=== PATIENT | female | born 1970 | race Caucasian/White ===

== ENCOUNTER 2024-08-18 17:59 | Observation (INO) | payer BC ==
--- OUTSIDE RECORDS SUMMARY | 2024-08-18 18:02 | XMS REPORT | Continuity of Care Document ---
Author Name Unknown Address [address] [facility]. 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 Attending Clinician U SOLIS Sanchez Attending Clinician Unavailable BLU SALAZAR Attending Clinician Unavailable WENDY LENNON Attending Clinician Chicho MANCIA MD Attending Clinician Unavailab gina MUJICA Attending Clinician Unavailable CHUCHO PATEL Attending Clinician Unavailable Ej Albert Attending Clinician Berry Torrez Attending Clinician Chicho marques Lab, Adc Fam Pob I Attending Clinician Noy Anderson Attending Clinician NOY ALFORD Attending Clinician Unavailable Mable King Admitting Clinician Unavailable ULISSES BUENO Admitting Clinician Unavailable Physician, No Primary or Family Admitting Clinic ghazal Unavailable Payers Payer Name Policy Type Policy Number Effective Date Expirati on Date Source [facility] [id number] 2021 00:00:00 [facility] [id number] 2022 00:00:00 Problems Condition Name Condition Details Condition Category Status Onset Date Resolution Date Last Treatment Date Treating Clinician Comments Source No known active problems No known active problems Disease Tangela Briscoe - Externa l Allergies, Adverse Reactions, Alerts Allergy Name Allergy Type Status Severity Reaction(s) Onset Date Inactive Date Treating Clinician Comments Source No Known Allergie s DA Active U 05-20 00:00: 00 [facility] No Known Allergie s DA Active U 05-20 00:00: 00 [facility] No Known Allergie s DA Active U 05-07 00:00: 00 [facility] NO KNOWN ALLERGIE S Drug Class Active [facility] Social History Social Habit Start Date Stop Date Quantity Comments Source Gender identity Marie Briscoe - External Sexual orientation U [facility] History of Social function 2022-05-10 00:00:00 2022-05-10 00:00:00 Tangela Black External Exposure to SARS-CoV-2 (event) 2019-12-18 00:00:00 2020-01-17 13:51:00 Not sure [facility] Sex Assigned At 1970 00:00:00 1970 00:00:00 Tangela Briscoe - External Smoking Status Start Date Stop Date Source Tobacco smoking consumption unknown [facility] Never smoked tobacco Tangela Briscoe - External Medications Ordered Medication Name Filled Medication Name Start Date Stop Date Current Medication? Ordering Clinician Indication Dosage Frequency Signature (SIG) Comments Components Source Omeprazole 40 MG oral Delayed Release Capsule 2022-04 15:02: 34 Yes Tangela zuñiga Semaglutide -Delmer ght Management 0.5 MG/0.5ML Subcutaneou s Solution Auto-inject or 2022-04 00:00: 00 Yes [id number] 104 .5mg Inject 0.5 mg into the skin once a week. Tangela zuñiga Nitrofurant oin Monohyd Macro 100 MG oral Capsule 10-18 00:00: 00 10-24 04:59 :00 No [id number] 100mg Take 1 capsule (100 mg total) by mouth 2 times daily for 5 days Take 1 tablet by mouth twice daily for 5 days. Tangela zuñiga Fluoxetine HCl 10 MG oral Tablet 07-01 00:00: 00 Yes [id number] TAKE ONE (1) TABLET(S) BY MOUTH DAILY. Tangela zuñiga Bupropion HCL XL 150 MG OR TB24 07-01 00:00: 00 Yes [id number] TAKE ONE (1) TABLET(S) BY MOUTH DAILY. Tangela zuñiga Estradiol 2 MG oral Tablet 07-01 00:00: 00 Yes [id number] TAKE ONE (1) TABLET(S) BY MOUTH ONCE A DAY. Tangela zuñiga Dulaglutide (Trulicity) 1.5 MG/0.5ML subcutaneou s Solution Pen-injecto r 06-16 00:00: 00 Yes [id number] 1.5mg Inject 1.5 mg into the skin once a week Tangela zuñiga Diethylprop ion HCl CR 75 MG oral TABLET SR 24 HR 06-16 00:00: 00 Yes [id number] 1{tbl} Take 1 tablet by mouth every morning Tangela zuñiga Albuterol HFA 108 (90 Base) MCG/ACT IN AERS 05-19 00:00: 00 Yes [id number] 2{puff} Q.25D Inhale 2 puffs into the lungs every 6 hours as needed for wheezing Tnagela zuñiga Guaifenesin (Mucinex) 600 MG oral Tablet 12 Hour Sustained Release 05-19 00:00: 00 Yes [id number] 1200mg Take 2 tablets (1,200 mg total) by mouth 2 times daily Tangela zuñiga Benzonatate (Tessalon Perles) 100 MG oral Capsule 05-19 00:00: 00 Yes [id number] 100mg [id number] 3D Take 1 capsule (100 mg total) by mouth 3 times daily as needed for cough Tangela zuñiga Loratadine (Claritin) 10 MG oral tablet 05-19 00:00: 00 Yes [id number] 10mg Take 1 tablet (10 mg total) by mouth daily Tangela zuñiga FLUTICASONE PROPIONATE, NASAL, (Flonase) 50 MCG/ACT nasal Suspension 05-19 00:00: 00 06-19 05:59 :00 No [id number] 50ug Use 1 spray (50 mcg total) in each nostril daily Tangela zuñiga Diethylprop ion HCl CR 75 MG oral TABLET SR 24 HR 18 00:00: 00 Yes [id number] 1{tbl} Take 1 tablet by mouth every morning Tangela zuñiga Trulicity 1.5 MG/0.5ML subcutaneou s Solution Pen-injecto r 04-23 00:00: 00 Yes [id number] 1.5mg Inject 1.5 mg into the skin once a week Tangela zuñiga Diethylprop ion HCl CR 75 MG oral TABLET SR 24 HR 04-23 00:00: 00 Yes [id number] 1{tbl} Take 1 tablet by mouth every morning Tangela zuñiga Meloxicam 15 MG oral Tablet 04-22 20:24: 39 04-22 00:00 :00 No 15mg Take 15 mg by mouth daily Tangela zuñiga Estradiol 2 MG oral Tablet 2021-04 00:00: 00 Yes [id number] 2mg Take 1 tablet (2 mg total) by mouth daily Tangela zuñiga Bupropion HCL XL 150 MG OR TB24 2021-04 00:00: 00 Yes [id number] 150mg Take 1 tablet (150 mg total) by mouth daily Tangela zuñiga Fluoxetine HCl 10 MG oral Tablet 2021-04 00:00: 00 Yes [id number] 10mg Take 1 tablet (10 mg total) by mouth daily Tangela zuñiga Celecoxib 200 MG oral Capsule 2021-04 00:00: 00 03-10 00:00 :00 No [id number] TAKE ONE (1) CAPSULE(S) BY MOUTH TWICE A DAY. Tangela zuñiga Dulaglutide (Trulicity) 0.75 MG/0.5ML subcutaneou s Solution Pen-injecto r 2021-04 00:00: 00 04-23 00:00 :00 No [id number] .75mg Inject 0.75 mg into the skin once a week Tangela zuñiga Omeprazole 40 MG oral Delayed Release Capsule 2021-04 11:54: 22 03-13 00:00 :00 No omeprazole 40 mg capsule,de layed release Tangela zuñiga Estradiol 2 MG oral Tablet 2021-04 10:59: 03 Yes 2mg Take 2 mg by mouth daily Tangela zuñiga Meloxicam 15 MG oral Tablet 2021-04 10:59: 03 Yes 15mg Take 15 mg by mouth daily Tangela zuñiga Pantoprazol e Sodium 40 MG oral Tablet Delayed Response 2021-04 00:00: 00 Yes [id number] 40mg Take 1 tablet (40 mg total) by mouth daily Tangela zuñiga Fluoxetine HCl 10 MG oral Tablet 2021-04 00:00: 00 Yes [id number] 10mg Take 1 tablet (10 mg total) by mouth daily Tangela zuñiga OZEMPIC (0.25 or 0.5 mg/dose) 2 mg/1.5 mL SQ Solution Pen-Injecto r 2021-04 00:00: 00 Yes [id number] .25mg Inject 0.25 mg into the skin once a week Tangela zuñiga Bupropion HCL XL 150 MG OR TB24 2021-04 00:00: 00 Yes [id number] 150mg Take 1 tablet (150 mg total) by mouth daily Tangela zuñiga Celecoxib (CeleBREX) 200 MG oral Capsule 2021-04 00:00: 00 Yes [id number] 200mg Take 1 capsule (200 mg total) by mouth 2 times daily Tangela zuñiga Estradiol 2 MG oral Tablet 2021-04 11:15: 12 Yes 2mg Take 2 mg by mouth daily Tangela zuñiga Meloxicam 15 MG oral Tablet 2021-04 11:15: 12 Yes 15mg Take 15 mg by mouth daily Tangela zuñiga methylPREDN ISolone 4 MG oral Tablet Therapy Pack 2021-04 00:00: 00 Yes 1{renate} Take 1 renate by mouth See Admin Instructio ns Use as directed Tangela zuñiga Pseudoeph-B romphen-DM (Bromfed DM) 30-2-10 MG/5ML oral Syrup 2021-04 00:00: 00 Yes 10mL Q.25D Take 10 mL by mouth 4 times daily as needed Tangela zuñiga Amoxicillin -Pot Clavulanate 875-125 MG oral Tablet 2021-04 00:00: 00 02-21 05:59 :00 No 1{tbl} Take 1 tablet by mouth 2 times daily for 7 days Tangela zuñiga Phentermine -Topiramate (Qsymia) 15-92 MG oral Capsule 24 Hour Sustained Release 2021-04 0-19 00:00: 00 02-13 00:00 :00 No [id number] 1{tbl} Take 1 tablet by mouth daily Tangela zuñiga OZEMPIC (0.25 or 0.5 mg/dose) 2 mg/1.5 mL SQ Solution Pen-Injecto r 2021-04 0-14 00:00: 00 02-13 00:00 :00 No [id number] .5mg Inject 0.5 mg into the skin once a week Tangela zuñiga Metformin HCl ER 500 MG oral TABLET SR 24 HR 9- 00:00: 00 04-23 00:00 :00 No [id number] TAKE 1 TABLET BY MOUTH AFTER BREAKFAST AND AFTER EVENING MEAL Tangela zuñiga Bupropion HCL SR 200 MG OR TB12 10-12 00:00: 00 Yes [id number] 200mg Take 1 tablet (200 mg total) by mouth 2 times daily Tangela zuñiga Vital Signs Vital Name Observation Time Observation Value Comments S ourfarzaneh Systolic blood pressure 2023-03-10 20:56:00 118 mm[Hg] Tangela Leslie ld - External Diastolic blood pressure 2023-03-10 20:56:00 54 mm[Hg] Tangela jocelyno ld - External Heart rate 2023-03-10 20:56:00 80 /min Tyrone y Sekanchan - External Body temperature 2023-03-10 20:56:00 36.56 Katja Tangela jocelyncorin - External Respiratory rate 2023-03-10 20:56:00 18 /min Tangela kanchan - External Body height 2023-03-10 20:56:00 167.6 cm Marie susanna Mcduffieybcorin - External Body weight 2023-03-10 20:56:00 120.714 kg Marie mullins Seybold - External BMI 2023-03-10 20:56:00 42.95 kg/m2 Marie mullins Seybold - External Oxygen saturation in Arterial blood by Pulse oximetry 2023-03-10 20:56:00 99 /min Tangela Leslie ld - External Systolic blood pressure 2022-04-23 15:58:00 124 mm[Hg] Tangela savanna ld - External Diastolic blood pressure 2022-04-23 15:58:00 74 mm[Hg] Tangela Leslie ld - External Heart rate 2022-04-23 15:58:00 96 /min Tyrone alfreda Mcduffiejocelynold - External Body temperature 2022-04-23 15:58:00 36.5 Katja Tangela ybold - External Respiratory rate 2022-04-23 15:58:00 16 /min Tangela jocelynold - External Body height 2022-04-23 15:58:00 167.6 cm Marie ey Seybold - External Body weight 2022-04-23 15:58:00 115.214 kg Marie ey Seybold - External BMI 2022-04-23 15:58:00 41.00 kg/m2 Marie ey Seybold - External Systolic blood pressure 2022-03-13 16:50:00 112 mm[Hg] Tangela Seybo ld - External Diastolic blood pressure 2022-03-13 16:50:00 74 mm[Hg] Tangela Seybo ld - External Heart rate 2022-03-13 16:50:00 97 /min Kelse y Seybold - External Body temperature 2022-03-13 16:50:00 36.17 Katja Tangela Seybold - External Respiratory rate 2022-03-13 16:50:00 14 /min Tangela Seybold - External Body height 2022-03-13 16:50:00 167.6 cm Marie ey Seybold - External Body weight 2022-03-13 16:50:00 112.946 kg Marie ey Seybold - External BMI 2022-03-13 16:50:00 40.19 kg/m2 Marie ey Seybold - External Procedures Procedure Date / Time Performed Performing Clinician Source XR CHEST 2 VW 2023-01-30 20:42:00 [facility] 2023-01-30 20:10:22 Doctor Unassigned[facility] NO SHOW OR MISSED APPOINTMENT POLICY ACKNOWLEDGEMENT 2023-01-30 20:10:01 Doctor Unassigned, [facility] NOTICE OF PRIVACY PRACTICES 2023-01-30 20:09:40 Doctor Unassigned, [facility] ASSIGNMENT OF BENEFITS 2023-01-30 20:09:23 Docto r Unassigned, [facility] CONSENT/REFUSAL FOR DIAGNOSIS AND TREATMENT 2023-01-30 20:09:01 Doctor Unassigned, [facility] Encounters Start Date/Time End Date/Time Encounter Type Admission Type Attending [facility] Facility Care Department Encounter ID Source 2024-05-19 00:00:00 2024-05-19 00:00:00 Outpatient EJ DELGADO [id number] [facility] 2024-04-30 08:00:00 2024-04-30 08:00:00 Outpatient Josr Herrera [facility] [id number] [facility] 2023-06-08 00:00:00 2023-06-08 00:00:00 Outpatient DIMPLEErika EJ NOLASCO [id number] [facility] 2023-05-27 00:00:00 2023-05-27 00:00:00 Outpatient DIMPLEErika EJ NOLASCO [id number] [facility] 2023-05-16 11:00:00 2023-05-16 11:00:00 Outpatient HEIDI KUMAR [id number] [facility] 2023-04-08 08:00:00 2023-04-08 08:00:00 Outpatient NOY VILLALOBOS [id number] [facility] 2023-03-21 12:00:00 2023-03-21 12:00:00 Outpatient Mable Espana [facility] [id number] [facility] 2023-03-10 15:00:00 2023-03-10 15:00:00 Outpatient NOY VILLALOBOS [id number] [facility] 2023-01-30 15:09:56 2023-01-30 23:59:00 Outpatient R RADIOLOGY [facility] [id number] [facility] 2023-01-30 15:09:56 2023-01-30 23:59:00 Hospital Encounter Radiology [facility] 1.840.114 350.1.13.10 4.2.7.2.686 [id number] [facility] 2023-01-30 00:00:00 2023-01-30 00:00:00 Orders Only Doctor Unassigned[facility] 1..840.114 350.1.13.10 4.2.7.2.686 [id number] [facility] 2022-10-18 13:15:00 2022-10-18 13:15:00 Outpatient SOLIS SALAZAR TANGELA NOLASCO [id number] [facility] 2022-06-30 00:00:00 2022-06-30 00:00:00 Outpatient DANNY EJ NOLASCO [id number] Tangela Seybcorin 2022-06-16 00:00:00 2022-06-16 00:00:00 Outpatient EJ DELGADO [id number] [facility] 2022-05-19 09:20:00 2022-05-19 09:20:00 Outpatient BLU SALAZAR TANGELA NOLASCO [id number] [facility] 2022-05-19 00:00:00 2022-05-19 00:00:00 Outpatient EJ DELGADO [id number] [facility] 2022-05-10 13:00:00 2022-05-10 13:00:00 Outpatient WENDY LENNON [id number] [facility] 2022-05-09 00:00:00 2022-05-09 00:00:00 Outpatient MD TANGELA POLLOCK [id number] [facility] 2022-04-30 00:00:00 2022-04-30 00:00:00 Outpatient EJ DELGADO [id number] Tangela Seybold 2022-04-23 10:00:00 2022-04-23 10:00:00 Outpatient EJ DELGADO [id number] Tangela Seybold 2022-04-12 11:00:00 2022-04-12 11:00:00 Outpatient EJ DELGADO [id number] Tangela Seybcorin 2022-04-12 00:00:00 2022-04-12 00:00:00 Outpatient EJ DELGADO [id number] Tangela Seybold 2022-04-09 00:00:00 2022-04-09 00:00:00 Outpatient EJ DELGADO [id number] Tangela Seybold 2022-04-08 00:00:00 2022-04-08 00:00:00 Outpatient DANNY EJ NOLASCO [id number] Tangela kanchan 2022-03-15 12:00:00 2022-03-15 12:00:00 Outpatient Mable Espana [facility] [id number] [facility] 2022-03-15 00:00:00 2022-03-15 00:00:00 Outpatient DANNY, EJ NOLASCO [id number] [facility] 2022-03-14 08:50:00 2022-03-14 08:50:00 Outpatient RAMÓN90 TANGELA NOLASCO [id number] [facility] 2022-03-13 11:00:00 2022-03-13 11:00:00 Outpatient HUNDErika, EJ NOLASCO [id number] [facility] 2022-03-13 00:00:00 2022-03-13 00:00:00 Outpatient DANNY, EJ NOLASCO [id number] [facility] 2022-03-11 14:30:00 2022-03-11 14:30:00 Outpatient HUNDL, EJ NOLASCO [id number] [facility] 2022-02-13 11:15:00 2022-02-13 11:15:00 Outpatient CHUCHO PATEL [id number] [facility] 2022-01-29 00:00:00 2022-01-29 00:00:00 Outpatient HUNDErika, EJ NOLASCO [id number] [facility] 2022-01-25 00:00:00 2022-01-25 00:00:00 Outpatient HUNDL, EJ NOLASCO [id number] [facility] 2022 00:00:00 2022 00:00:00 Outpatient DIMPLEL, EJ NOLASCO [id number] Tangela Seybcorin 2022 00:00:00 2022 00:00:00 Outpatient DANNY, EJ NOLASCO [id number] [facility] 2022-01-14 00:00:00 2022-01-14 00:00:00 Outpatient EJ DELGADO TANGELA [id number] Tangela Briscoe 2021-12-25 10:30:00 2021-12-25 11:00:00 Office Visit Ej Delgado 1.2.840.114 350.1.13.13 1.2.7.2.686 [id number] Tangela Briscoe 2021-12-21 11:00:00 2021-12-21 11:00:00 Outpatient EJ DELGADO TANGELA [id number] [facility] 2021-12-05 00:00:00 2021-12-05 00:00:00 Outpatient EJ DELGADOHALLIE NOLASCO [id number] [facility] Briscoe 2021-12-02 00:00:00 2021-12-02 00:00:00 Outpatient EJ DELGADOHALLIE NOLASCO [id number] [facility]ela Briscoe 2021-11-27 00:00:00 2021-11-27 00:00:00 Outpatient EJ DELGADOHALLIE NOLASCO [id number] Tangela Briscoe 2021-11-19 00:00:00 2021-11-19 00:00:00 Outpatient EJ DELGADO TANGELA [id number] [facility]ela Briscoe 2021-11-16 11:00:00 2021-11-16 11:30:00 Office Visit Ej Delgado 1.2.840.114 350.1.13.13 [id number] [id number] Tangela Briscoe 2021-10-12 13:30:00 2021-10-12 13:30:00 Outpatient EJ DELGADO TANGELA TANGELA [id number] [facility]ela Briscoe 2021-10-12 10:20:00 2021-10-12 10:20:00 Outpatient LABVincent TANGELA NOLASCO [id number] Tangela Briscoe 2021-10-12 09:30:00 2021-10-12 10:00:00 Office Visit jE Delgado 1.2.840.114 350.1.13.13 1.2.7.2.686 [id number] Tangela Briscoe 2021-03-02 12:00:00 2021-03-02 12:00:00 Outpatient Mable Espana [facility] [id number] [facility] 2020-02-24 12:00:00 2020-02-24 12:00:00 Outpatient Berry Lechuga [facility] [id number] [facility] 2020-01-17 13:38:12 2020-01-17 13:58:12 Laboratory Only [facility] 1.2.840.114 350.1.13.10 4.2.7.2.686 [id number] [facility] 2020-01-17 13:40:00 2020-01-17 13:40:00 Outpatient Sabino NOY ALFORD [facility] [id number] [facility] 2019-10-26 00:00:00 2019-10-26 00:00:00 Patient Secure Msg Doctor Unassigned, [facility] 1.2.840.114 350.1.13.10 4.2.7.2.686 [id number] [facility] Results Test Description Test Time Test Comments Results Resul t Comments Source - MRI LW JNT W/CONTRAST RT 2018-05-20 15:31:00 Patient Name: JEN MALLOY Unit No: [id number] EXAMS: CPT CODE: [id number] MRI LW JNT W/[place] [address] MRI ARTHROGRAM RIGHT HIP DIAGNOSIS: 1. There is attenuation and irregularity of the superior and anterior acetabular labrum with an associated minimally displaced acetabular labral tear. 2. Mild distal gluteus medius tendinosis. 3. There is chondral fissure with delaminating chondral lesion overlying the anterior and superior aspect of the acetabulum INDICATION: Right hip pain COMPARISON: None PULSE SEQUENCES: Multiplanar, multisequence MRI is obtained of the right hip post arthrography. There is satisfactory contrast distention of the right hip joint. The labral abnormalities described above. The ligamentum teres and transverse ligaments are intact. Chondral abnormalities as described above. No aggressive osseous lesion or acute fracture. The iliopsoas, rectus femoris, and hamstring tendons are normal. Mild gluteus medius tendinosis. No muscle belly atrophy or edema. No iliopsoas or trochanteric bursal fluid to suggest bursitis. The visualized pelvic structures are normal. There are no regional soft tissue abnormalities or aggressive osseous lesions. RIGHT HIP ARTHROGRAM WITH INTRA-ARTICULAR MARCAINE INJECTION Comment: After informed consent was obtained a 25-gauge needle is inserted into the right hip joint under fluoroscopic control using sterile technique. A total volume of 8 mL consisting of a combination of equal parts Isovue-300 and dilute gadolinium is instilled into the joint space. This is followed by intra-articular injection of 5 mL Marcaine. The patient tolerated the procedure well. 0.5 minutes of fluoroscopy time was used on this exam. Post arthrographic films show extravasation of contrast outside the joint [facility] NAME: JNE MALLOY [address] [place] [address] PHYS: MATVA.Patricio - Shabbir Carmona : 1970 AGE: 48 SEX: F [place] [address] LOC: Y.RAD PHONE #: [phone] EXAM DATE: 05/20/2018 STATUS: REG CLI FAX #: [phone] RAD #: D/C DT PAGE 1 Signed Report (CONTINUED) Patient Name: JEN MALLOY Unit No: [id number] EXAMS: CPT CODE: [id number] MRI LW JNT W/[place] [address] <Continued> at 1531 Reported and signed by: Radha Man MD CC: Shabbir Carmona MD Technologist: MAURO LEACH MRI Transcribed D/ (1531) [email or web address] [facility] NAME: JEN MALLOY [address] [place] [address] PHYS: MATVA. - Shabbir Carmona : 1970 AGE: 48 SEX: F [place] [id number] LOC: Y.RAD PHONE #: [phone] EXAM DATE: 05/20/2018 STATUS: REG CLI FAX #: [phone] RAD #: D/C DT PAGE 2 Signed Report Patient Name: JEN MALLOY Unit No: [id number] EXAMS: CPT CODE: [id number] MRI LW JNT W/[place] [address] <Continued> Orig Print D/T: S: 05/20/2018 (1535) [facility] NAME: JEN MALLOY [address] [facility] PHYS: MATVA.01 - Shabbir Carmona : 1970 AGE: 48 SEX: F [place], [place] [address] LOC: Y.RAD PHONE #: [phone] EXAM DATE: 05/20/2018 STATUS: REG CLI FAX #: [phone] RAD #: D/C DT PAGE 3 Signed Report - XR ARTHROGRAM HIP W/O AN RT+ 2018-05-20 15:31:00 Patient Name: JEN MALLOY Unit No: [id number] EXAMS: CPT CODE: [id number] XR ARTHROGRAM HIP W/O AN RT+ 15313 MRI ARTHROGRAM RIGHT HIP DIAGNOSIS: 1. There is attenuation and irregularity of the superior and anterior acetabular labrum with an associated minimally displaced acetabular labral tear. 2. Mild distal gluteus medius tendinosis. 3. There is chondral fissure with delaminating chondral lesion overlying the anterior and superior aspect of the acetabulum INDICATION: Right hip pain COMPARISON: None PULSE SEQUENCES: Multiplanar, multisequence MRI is obtained of the right hip post arthrography. There is satisfactory contrast distention of the right hip joint. The labral abnormalities described above. The ligamentum teres and transverse ligaments are intact. Chondral abnormalities as described above. No aggressive osseous lesion or acute fracture. The iliopsoas, rectus femoris, and hamstring tendons are normal. Mild gluteus medius tendinosis. No muscle belly atrophy or edema. No iliopsoas or trochanteric bursal fluid to suggest bursitis. The visualized pelvic structures are normal. There are no regional soft tissue abnormalities or aggressive osseous lesions. RIGHT HIP ARTHROGRAM WITH INTRA-ARTICULAR MARCAINE INJECTION Comment: After informed consent was obtained a 25-gauge needle is inserted into the right hip joint under fluoroscopic control using sterile technique. A total volume of 8 mL consisting of a combination of equal parts Isovue-300 and dilute gadolinium is instilled into the joint space. This is followed by intra-articular injection of 5 mL Marcaine. The patient tolerated the procedure well. 0.5 minutes of fluoroscopy time was used on this exam. Post arthrographic films show extravasation of contrast outside the joint [facility] NAME: JEN MALLOY [address] [facility] PHYS: MATLADI Black Shabbir Carmona : 1970 AGE: 48 SEX: F [place] [address] LOC: Y.RAD PHONE #: [phone] EXAM DATE: 05/20/2018 STATUS: REG CLI FAX #: [phone] RAD #: D/C DT PAGE 1 Signed Report (CONTINUED) Patient Name: JEN MALLOY Unit No: [id number] EXAMS: CPT CODE: [id number] XR ARTHROGRAM HIP W/O AN RT+ 22951 <Continued> at 1531 Reported and signed by: Radha Man MD CC: Shabbir Carmona MD Technologist: Pete Celaya,RT(R). Transcribed D/ (1531) t.SDR.GVG [facility] NAME: JEN MALLOY [address] [facility] PHYS: MATLADI Black Shabbir Carmona : 1970 AGE: 48 SEX: F [place] [address] LOC: Y.RAD PHONE #: [phone] EXAM DATE: 05/20/2018 STATUS: REG CLI FAX #: [phone] RAD #: D/C DT PAGE 2 Signed Report Patient Name: JEN MALLOY Unit No: [id number] EXAMS: CPT CODE: [id number] XR ARTHROGRAM HIP W/O AN RT+ 06238 <Continued> Orig Print D/T: S: 05/20/2018 (1535) [facility] NAME: JEN MALLOY [address] [facility] PHYS: MATVA.01 - Shabbir Carmona : 1970 AGE: 48 SEX: F [place], [place] [address] LOC: [facility] PHONE #: [phone] EXAM DATE: 05/20/2018 STATUS: REG CLI FAX #: [phone] RAD #: D/C DT PAGE 3 Signed Report
[2024-08-18] MEDS ORDERED: ONDANSETRON 4 MG/2 ML VIAL ONE ×2 (18:21→19:53)
[2024-08-18] MEDS ORDERED: FENTANYL CITR 100 MCG/2 ML ONE (18:21)
[2024-08-18] MEDS ORDERED: NA CHLORIDE 0.9% 1,000 ML ONE (18:21)
[2024-08-18 18:28] LABS: Absolute Basophils 0.1 K/uL (0-0.5); Absolute Eosinophils 0.2 K/uL (0-0.5); Absolute Lymphocytes (CBC) 1.9 K/uL (0.7-4.9); Absolute Monocytes 0.4 K/uL (0.1-1.3); Absolute Neutrophil 5.9 K/uL (1.8-8.0); Basophils % 0.8 % (0-1.3); Eosinophils % 2.1 % (0-4.4); Hemoglobin 15.1 g/dL (12.0-15.0); Lymphocytes % 22.7 % (15.3-44.8); MCH 30.1 pg (27.0-35.0); MCHC 35.1 g/dL (32.0-36.0); MCV 85.9 fL (80-100); MPV 7.7 fL (7.6-11.3); Monocytes % 5.1 % (3.3-12.3); Neutrophils % 69.3 % (41.7-73.7); Platelets 316 thou/uL (152-406); RBC Red Blood Cell Count 5.01 M/uL (3.86-4.86); Red Cell Distribution Width 14.8 % (12.1-15.2)
[2024-08-18 18:56] LABS: ALT/SGPT 32 U/L (13-56); Albumin 3.5 g/dL (3.4-5.0); Albumin/Globulin Ratio 0.9 (1.1-1.8); Alkaline Phosphatase 72 U/L (45-117); Anion Gap 9.1 mEq/L (5.0-15.0); BUN Blood Urea Nitrogen 21 mg/dL (7-18); Bicarbonate 27 mEq/L (21-32); Bilirubin Total 0.6 mg/dL (0.2-1.0); Globulin 3.8 g/dL (2.3-3.5); Glomerular Filtration Rate 68 ml/min (=/>90); Glucose Level 102 mg/dL (74-106); Lipase 38 U/L (13-75); Potassium 4.1 mEq/L (3.5-5.1); Protein, Total 7.3 g/dL (6.4-8.2); Sodium Level 140 mEq/L (136-145)
[2024-08-18 18:58] LABS: AST/SGOT < 10 U/L (15-37)
--- NOTE | 2024-08-18 19:29 | RAD REPORT ---
EXAMINATION: Abdomen Pelvis W Contrast CLINICAL INDICATION: Female, 54 years old.ABD PAIN TECHNIQUE: CT abdomen and pelvis was performed, after the administration of IV contrast, as per [facility] protocol. Axial, sagittal and coronal reconstructions were obtained. One or more of the following dose reduction techniques were used: Automated exposure control, adjustment of the mA and/o r kV according to patient size, and/or iterative reconstruction. Unless otherwise specified, incidental findings do not require dedicated imaging follow-up. [id number]. COMPARISON: No prior exam. FINDINGS: LOWER CHEST: No acute process identified.No significant pericardial effusion. Mild circumferential th ickening of the distal esophagus which could reflect esophagitis. Breast prostheses UPPER GI: No significant abnormality. LIVER: Hepatic steatosis, but otherwise unremarkable. GALLBLADDER/BILE DUCTS: No biliary ductal dilatation.? PANCREAS: No mass, ductal dilation, or florentin-pancreatic fluid. SPLEEN: Unremarkable. ADRENALS: No adrenal masses. KIDNEYS AND URETERS: No hydronephrosis.No suspicious renal mass.No renal calculi.No ureteral calculi. ABDOMINAL AORTA AND OTHER VESSELS: Mild atherosclerotic changes. PERITONEUM: No abnormal free fluid. No free air. LYMPH NODES: No pathologic lymphadenopathy. ABDOMINAL WALL: Small fat containing umbilical hernia. SMALL BOWEL/COLON: Small bowel has normal course and caliber. No colonic wall thickening or pericolon ic inflammatory changes.Mildly dilated and fluid-filled appendix which is retrocecal in location. No appendicolith. The appendix measures approximately 10 mm in maximal thickness. URINARY BLADDER: Underdistended but grossly unremarkable. REPRODUCTIVE ORGANS: No pathologic process. MUSCULOSKELETAL: Multilevel degenerative changes in the spine. No acute fracture. Left hip arthroplas ty ADDITIONAL FINDINGS: None. IMPRESSION: Borderline dilated appendix with trace periappendiceal inflammatory changes could reflect very early or mild acute appendicitis in the appropriate clinical setting. Recommend clinical correlation. No other acute findings identified.
--- NOTE | 2024-08-18 19:43 | EDPHYS ---
Physician Documentation [facility] Name: Roselyn Lee Age: 54 yrs Sex: Female : 1970 Arrival Date: 08/18/2024 Time: 17:59 Bed 19 Private MD: ED Physician Fran hCahal HPI: 08/18 18:48 This 54 yrs old Female presents to ER via Ambulatory with complaints of Abdominal Pain, kb Vomiting. 18:48 Patient is a 54-year-old female who presents for right lower quadrant pain. States she kb had diffuse abdominal pain that started yesterday, nausea and vomiting last night and the pain localized to right lower quadrant today. Denies fever, diarrhea, urinary symptoms.. 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 - Infectious Disease History:: Denies. - Social history:: Smoking status: Patient denies any tobacco usage or history of. ROS: 18:48 Constitutional: As per HPI kb Exam: 18:48 Constitutional: This is a well developed, well nourished patient who is awake, alert, kb and in no acute distress. Head/Face: Normocephalic, atraumatic. ENT: Moist Mucous membranes Cardiovascular: Regular rate Respiratory: Respirations even and unlabored. No increased work of breathing. Talking in full sentences Skin: Warm, dry with normal turgor. Normal color. MS/ Extremity: Pulses equal, no cyanosis. Neurovascular intact. Full, normal range of motion. Neuro: Awake and alert, GCS 15, oriented to person, place, time, and situation. 18:48 Abdomen/GI: Inspection: abdomen appears normal, Bowel sounds: normal, Palpation: soft, in all quadrants, moderate abdominal tenderness, in the right lower quadrant, Vital Signs: 18:08 BP 106 / 74; Pulse 105; Resp 16; Temp 100(O); Pulse Ox 98% ; Weight 111.58 kg; Height 5 db ft. 6 in. ; 19:22 Temp 98; rk3 19:57 Temp 98.2; rk3 20:57 BP 127 / 67; Pulse 65; Resp 18 S; Pulse Ox 96% on R/A; Pain 0/10; br2 18:08 Body Mass Index 39.70 (111.58 kg, 167.64 cm) db 20:57 Pain Scale: Adult br2 MDM: 18:03 Medical Screening Exam initiated 18:49 Data reviewed: vital signs, nurses notes. Historians other than the Patient: kb Spouse/Significant Other: Spouse. 19:41 Differential diagnosis: appendicitis, non-specific abd pain, urinary tract infection. Consideration of Admission/Observation Patient was admitted/placed on observation. Escalation of care including admission/observation considered. Management of patient was discussed with the following: Outpatient Physical Therapist Assistant: Dr De La Cruz accepts pt for consult. Wants admitted to hospitalist, NPO after midnight, hold abx for now, cbc in AM. He will evaluate in the morning. All information passed to hospitalist. . Primary Care Provider: . Counseling: I had a detailed discussion with the patient and/or guardian regarding the historical points, exam findings, and any diagnostic results supporting the discharge/admit diagnosis, lab results, radiology results, the need for further work-up and treatment in the hospital. 21:15 Management of patient was discussed with the following: Hospitalist: Pt accepted for admission by hospitalist. 08/18 18:12 Order name: CBC with Diff; Complete Time: 18:44 kb 08/18 18:12 Order name: CMP; Complete Time: 19:04 kb 08/18 18:12 Order name: Lipase; Complete Time: 19:04 kb 08/18 23:53 Order name: CBC with Automated Diff [facility] 08/18 23:53 Order name: CBC with Automated Diff [facility] 08/18 23:53 Order name: Comprehensive Metabolic Panel [facility] 08/18 23:53 Order name: Comprehensive Metabolic Panel [facility] 08/18 18:12 Order name: CT Abd/Pelvis - IV Contrast Only; Complete Time: 19:33 kb 08/18 23:54 Order name: Dr Annie De La Cruz [facility] 08/18 18:12 Order name: IV Saline Lock; Complete Time: 18:20 kb 08/18 18:12 Order name: Labs collected and sent; Complete Time: 18:20 kb Administered Medications: 18:31 Drug: Ondansetron IVP 4 mg IVP once; over 2 minutes Route: IVP; Site: right antecubital;kc6 19:07 Follow up: Response: No adverse reaction; Nausea is decreased; Vomiting decreased kc6 18:31 Drug: NS 0.9% IV 1000 ml IV at 1 bolus Per protocol; to be given as a bolus over 60 kc6 minutes Route: IV; Rate: 1 bolus; Site: right antecubital; 19:08 Follow up: Response: No adverse reaction; IV Status: Completed infusion; IV Intake: kc6 1000ml 18:31 Drug: fentaNYL (PF) IVP 50 mcg IVP once Route: IVP; Site: right antecubital; kc6 19:07 Follow up: Response: No adverse reaction; Pain is decreased; RASS: Alert and Calm (0) kc6 19:54 Drug: Ondansetron IVP 4 mg IVP once; over 2 minutes Route: IVP; Site: right antecubital;br2 21:39 Follow up: Response: No adverse reaction br2 20:50 Drug: Acetaminophen PO 1000 mg PO once Route: PO; br2 21:39 Follow up: Response: No adverse reaction br2 Disposition: 23:39 Co-signature as Attending Physician, Fran Chahal MD I agree with the assessment and hoa plan of care. Disposition Summary: 08/18/24 19:43 Hospitalization Ordered Notes: Hospitalization Status: Observation kb Provider: Gerard Bocanegra Condition: Stable kb Problem: new kb Symptoms: are unchanged kb Bed/Room Type: Standard kb Location: Telemetry/MedSurg (observation)(08/19/24 10:28) Room Assignment: 430(08/19/24 10:28) Diagnosis - Lower abdominal pain, unspecified - early appendicitis kb Forms: - Medication Reconciliation Form kb - SBAR form kb - Leadership Thank You Letter kb Signatures: Dispatcher [employer] Rozina Leyva, DRYWALL APPLICATOR-C DRYWALL APPLICATOR-Fran More MD MD cha Baxter, Heather RN RN Brynn Loera RN RN vc1 Kaitlin Boyer RN RN kc6 Jaye Bro RN RN db Arlen Vargas RN RN br2 Corrections: (The following items were deleted from the chart) 18:12 18:12 CBC+H.LAB.BRZ ordered. EDMS EDMS 18:12 18:12 COMPREHENSIVE METABOLIC PANEL+C.LAB.BRZ ordered. EDMS EDMS 18:12 18:12 LIPASE+C.LAB.BRZ ordered. EDMS EDMS 18:12 18:12 Abdomen Pelvis W Con+CT.RAD.BRZ ordered. EDMS EDMS : 19:43 Telemetry/MedSurg (observation) kb vc1 23:09 19:43 kb vc1 08/19 10:28 05 23:09 [facility] ER HOLD vc1 hb 08/19 10:28 08/18 23:09 ERHOLD- vc1 hb
--- NOTE | 2024-08-18 19:43 | ER ---
Nurse's Notes [facility] Name: Roselyn Lee Age: 54 yrs Sex: Female : 1970 Arrival Date: 08/18/2024 Time: 17:59 Bed 19 Private MD: Diagnosis: Lower abdominal pain, unspecified-early appendicitis Presentation: 08/18 18:08 Chief complaint: Patient states: ABD PAIN WITH VOMITING AND CRAMPING LOWER ABD STARTED db YESTERDAY. Coronavirus screen: Client denies travel out of the [place] in the last 14 days. At this time, the client does not indicate any symptoms associated with coronavirus-19. Ebola Screen: Patient negative for fever greater than or equal to 101.5 degrees Fahrenheit, and additional compatible Ebola Virus Disease symptoms Patient denies exposure to infectious person. Patient denies travel to an Ebola-affected area in the 21 days before illness onset. No symptoms or risks identified at this time. Initial Sepsis Screen: Does the patient meet any 2 criteria? No. Patient's initial sepsis screen is negative. Does the patient have a suspected source of infection? No. Patient's initial sepsis screen is negative. Risk Assessment: Do you want to hurt yourself or someone else? Patient reports no desire to harm self or others. Onset of symptoms was August 17, 2024. 18:08 Method Of Arrival: Ambulatory db 18:08 Acuity: KALE 3 db Triage Assessment: 18:09 General: Appears in no apparent distress. comfortable, Behavior is calm, cooperative. db Pain: Complains of pain in abdomen. Neuro: Level of Consciousness is awake, alert, obeys commands, Oriented to person, place, time, situation. Respiratory: Airway is patent Respiratory effort is even, unlabored, Respiratory pattern is regular, symmetrical. GI: Abd is soft Abdomen is tender to palpation in right lower quadrant and left lower quadrant Reports lower abdominal pain, nausea. 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 - Infectious Disease History:: Denies. - Social history:: Smoking status: Patient denies any tobacco usage or history of. Screenin:48 [facility] ED Fall Risk Assessment (Adult) History of falling in the last 3 months, kc6 including since admission No falls in past 3 months (0 pts) Confusion or Disorientation No (0 pts) Intoxicated or Sedated No (0 pts) Impaired Gait No (0 pts) Mobility Assist Device Used No (0 pt) Altered Elimination No (0 pt) Score/Fall Risk Level 0 - 2 = Low Risk Oriented to surroundings, Maintained a safe environment. Abuse screen: Denies threats or abuse. Denies injuries from another. Nutritional screening: No deficits noted. Tuberculosis screening: No symptoms or risk factors identified. Assessment: 18:48 General: Appears in no apparent distress. comfortable, well groomed, well developed, kc6 Behavior is calm, cooperative, appropriate for age. Pain: Complains of pain in right lower quadrant. Neuro: Level of Consciousness is awake, alert, obeys commands, Oriented to person, place, time, situation, Appropriate for age. Cardiovascular: Capillary refill < 3 seconds. Respiratory: Airway is patent Trachea midline Respiratory effort is even, unlabored, Respiratory pattern is regular, symmetrical. GI: Abdomen is round non-distended, Bowel sounds present X 4 quads. Abd is soft X 4 quads Abdomen is tender to palpation in right lower quadrant Reports lower abdominal pain, nausea, vomiting, Patient currently denies diarrhea. : No signs and/or symptoms were reported regarding the genitourinary system. EENT: No signs and/or symptoms were reported regarding the EENT system. Derm: No signs and/or symptoms reported regarding the dermatologic system. Skin is intact, is healthy with good turgor, Skin is pink, warm \T\ dry. Musculoskeletal: No signs and/or symptoms reported regarding the musculoskeletal system. Circulation, motion, and sensation intact. Range of motion: intact in all extremities. 19:15 Reassessment: Patient and/or family updated on plan of care and expected duration. Pain br2 level reassessed. Patient states symptoms have improved. 20:51 Reassessment: PT C/O HEADACHE...PROVIDER NOTIFIED. br2 20:57 Reassessment: Patient and/or family updated on plan of care and expected duration. Pain br2 level reassessed. Patient states feeling better. Patient states symptoms have improved. Vital Signs: 18:08 BP 106 / 74; Pulse 105; Resp 16; Temp 100(O); Pulse Ox 98% ; Weight 111.58 kg; Height 5 db ft. 6 in. ; 19:22 Temp 98; rk3 19:57 Temp 98.2; rk3 20:57 BP 127 / 67; Pulse 65; Resp 18 S; Pulse Ox 96% on R/A; Pain 0/10; br2 18:08 Body Mass Index 39.70 (111.58 kg, 167.64 cm) db 20:57 Pain Scale: Adult br2 ED Course: 18:01 Patient arrived in ED. mr 18:02 Sinan Larsonistin, [facility] kb 18:02 Fran Chahal MD is Attending Physician. kb 18:09 Triage completed. db 18:10 Arm band placed on. db 18:19 Kaitlin Boyer, KIMBERLY is Primary Nurse. kc6 18:21 Initial lab(s) drawn, by me, sent to lab. Inserted saline lock: 20 gauge in right db antecubital area, using aseptic technique. Blood collected. Flushed with 10 mL NS. 18:47 Patient has correct armband on for positive identification. Bed in low position. Call kc6 light in reach. Side rails up X 1. Adult w/ patient. Pulse ox on. NIBP on. Door closed. Noise minimized. Lights dimmed. Warm blanket given. Pillow given. Verbal reassurance given. 18:48 Patient maintains SpO2 saturation greater than 95% on room air. kc6 19:08 Report given to Arlen Vargas RN. kc6 19:16 CT Abd/Pelvis - IV Contrast Only In Process Unspecified. EDMS 19:42 Gerard Bocanegra MD is Hospitalizing Provider. kb 20:46 Report received from abbey. br2 08/19 07:00 No provider procedures requiring assistance completed. Patient admitted, IV remains in aa5 place. Administered Medications: 08/18 18:31 Drug: Ondansetron IVP 4 mg IVP once; over 2 minutes Route: IVP; Site: right antecubital;kc6 19:07 Follow up: Response: No adverse reaction; Nausea is decreased; Vomiting decreased kc6 18:31 Drug: NS 0.9% IV 1000 ml IV at 1 bolus Per protocol; to be given as a bolus over 60 kc6 minutes Route: IV; Rate: 1 bolus; Site: right antecubital; 19:08 Follow up: Response: No adverse reaction; IV Status: Completed infusion; IV Intake: kc6 1000ml 18:31 Drug: fentaNYL (PF) IVP 50 mcg IVP once Route: IVP; Site: right antecubital; kc6 19:07 Follow up: Response: No adverse reaction; Pain is decreased; RASS: Alert and Calm (0) kc6 19:54 Drug: Ondansetron IVP 4 mg IVP once; over 2 minutes Route: IVP; Site: right antecubital;br2 21:39 Follow up: Response: No adverse reaction br2 20:50 Drug: Acetaminophen PO 1000 mg PO once Route: PO; br2 21:39 Follow up: Response: No adverse reaction br2 Medication: 08/19 07:00 VIS not applicable for this client. aa5 Intake: 08/18 19:08 IV: 1000ml; Total: 1000ml. kc6 Outcome: 19:43 Decision to Hospitalize by Provider. kb 08/19 07:00 Admitted to ER Hold. Please see [facility] for further documentation. aa5 07:00 Condition: stable aa5 07:00 Instructed on the need for admit, Demonstrated understanding of instructions, 10:45 Patient left the ED. aa5 Signatures: Dispatcher [employer] EDRozina Villa, INTEGRATION LEAD-C INTEGRATION LEAD-Lexie Tillman, Reg Reg mr DavidJanell, RN RN [email or web address] Kaitlin Boyer RN RN kc6 Jaye Bro RN RN Arlen Wheeler RN RN br2 Catia Marin rk3 Corrections: (The following items were deleted from the chart) 08/18 18:13 18:08 BP 106 / 74; Pulse 105bpm; Resp 16bpm; Pulse Ox 98%; 111.58 kg; Height 5 ft. 6 db in.; BMI: 39.7; db
[2024-08-18] MEDS ORDERED: ACETAMINOPHEN 500 MG TAB ONE (20:00)
[2024-08-18] MEDS: NA CHLORIDE 0.9% 1,000 ML IV SCH (23:45)
--- NOTE | 2024-08-18 23:47 | P.HP ---
Certification for Inpatient Patient admitted to: Inpatient With expected LOS: >2 Midnights Patient will require the following post-hospital care: None Practitioner: I am a practitioner with admitting privileges, knowledge of patient current condition, hospital course, and medical plan of care. Services: Services provided to patient in accordance with Admission requirements found in Title 42 Section 412.3 of the Code of Federal Regulations Patient History Date of Service: 08/18/24 Reason for admission: Acute appendicitis. Allergies No Known Allergies Allergy (Unverified 08/19/24 01:23) Home medications list reviewed: No - Past Medical/Surgical History Diabetic: No - Family History Family History: Reviewed- Non-Contributory - Social History Smoking Status: Current every day smoker Alcohol use: No CD- Drugs: No Caffeine use: Yes Place of Residence: Home Review of Systems 10-point ROS is otherwise unremarkable Gastrointestinal: Nausea, Vomiting, Abdominal Pain Physical Examination - Physical Exam General: Alert, In no apparent distress, Oriented x3, Cooperative HEENT: Atraumatic, Normocephalic, PERRLA, Mucous membr. moist/pink, Sclerae nonicteric Neck: Supple, 2+ carotid pulse no bruit, Without JVD or thyroid abnormality Respiratory: Clear to auscultation bilaterally, Normal air movement Cardiovascular: Normal pulses, Regular rate/rhythm, Normal S1 S2, No gallops, No rubs, No murmurs Capillary refill: <2 Seconds Gastrointestinal: Normal bowel sounds, Tenderness Musculoskeletal: No clubbing, No swelling, No erythema, No tenderness, No warmth Integumentary: No rashes, No tenderness/swelling, No erythema, No warmth, No cyanosis Neurological: Normal gait, Normal tone, Sensation intact, Cranial nerves 3-12 intact, Normal reflexes 2+, Normal affect Lymphatics: No axilla or inguinal lymphadenopathy External genitalia: Non-tender Rectal: Normal - Studies Laboratory Data (last 24 hrs) 08/18/24 08/18/24 18:21 18:21 WBC 8.50 Hgb 15.1 H Hct 43.0 Plt Count 316 Sodium 140 Potassium 4.1 BUN 21 H Creatinine 0.99 Glucose 102 Total Bilirubin 0.6 AST < 10 L ALT 32 Alkaline Phosphatase 72 Lipase 38 Female Exam - Breasts Breasts: Normal configuration - Female Pelvic Cervix: No discharge Assessment and Plan - Plan Patient is a pleasant 54-year-old female with past medical history of depression, hypothyroidism, who presents to the ER today complaining of worsening abdominal pain associated with nausea and vomiting nonbilious and nonbloody content. Patient states around 11 AM on Friday night, she started having diffuse abdominal pain associated with nausea and vomiting, states it continued all the way to 1 AM. Patient states at the time her temperature was 100.2 Fahrenheit. She states today the pain on her left side subsided, but the pain on the right side continued. She describes the pain as constant and aching. She states movement precipitates the pain. Patient denies having associated chest pain, shortness of breath, headaches, urinary frequency. (1) Acute appendicitis. -IV NS at 100ml/Hr. Patient have had multiple episodes of vomiting. -Morphine 4 mg IV as needed every 4 hours. -Would have preferred to order antibiotics for coverage, but according to report received from the ER doctor, he states when he spoke to the surgeon Dr. De La Cruz, he requested not to have patient put on antibiotics at this time. (2) chronic hypothyroidism. -Continue patient home medication levothyroxine. (3) explained the entire treatment plan to the patient, solicit questions answered and voiced understanding. Discharge Plan: Home Plan to discharge in: 48 Hours - Advance Directives Does patient have a Living Will: No Does patient have a Durable POA for Healthcare: No - Code Status/Comfort Care Code Status Assessed: Yes Code Status: Full Code
[2024-08-19 01:20] VITALS: BMI 39.6
[2024-08-19] MEDS ORDERED: NA CHLORIDE 0.9% 1,000 ML ONE (01:46)
[2024-08-19 05:01] LABS: Absolute Basophils 0.1 K/uL (0-0.5); Absolute Eosinophils 0.2 K/uL (0-0.5); Absolute Lymphocytes (CBC) 1.9 K/uL (0.7-4.9); Absolute Monocytes 0.5 K/uL (0.1-1.3); Absolute Neutrophil 4.2 K/uL (1.8-8.0); Hematocrit 39.2 % (36.0-45.0); Hemoglobin 13.4 g/dL (12.0-15.0); Lymphocytes % 27.9 % (15.3-44.8); MCH 29.4 pg (27.0-35.0); MCHC 34.3 g/dL (32.0-36.0); MCV 85.6 fL (80-100); MPV 7.7 fL (7.6-11.3); Monocytes % 7.5 % (3.3-12.3); Neutrophils % 60.6 % (41.7-73.7); Platelets 292 thou/uL (152-406); RBC Red Blood Cell Count 4.57 M/uL (3.86-4.86); Red Cell Distribution Width 14.8 % (12.1-15.2)
[2024-08-19 05:18] LABS: Albumin/Globulin Ratio 0.9 (1.1-1.8); Anion Gap 8.7 mEq/L (5.0-15.0); Bilirubin Total 0.6 mg/dL (0.2-1.0); Globulin 3.2 g/dL (2.3-3.5); Potassium 3.7 mEq/L (3.5-5.1); Protein, Total 6.2 g/dL (6.4-8.2)
[2024-08-19] MEDS ORDERED: PIPERACIL/TAZO 3.375 GM VIAL IV ONE (08:04)
[2024-08-19] MEDS ORDERED: NA CHLORIDE 0.9% 100 ML ONE (08:04)
[2024-08-19] MEDS: PIPER TAZO 3.375 GM in NA CHLORIDE 0.9% 100 ML IV SCH (08:38)
[2024-08-19] MEDS ORDERED: MORPHINE 4 MG/ML SYR ONE (08:58)
[2024-08-19] MEDS ORDERED: ONDANSETRON 4 MG/2 ML VIAL ONE ×2 (08:58→11:59)
[2024-08-19] MEDS: MORPHINE 4 MG/ML SYR IV PRN (09:00)
[2024-08-19] MEDS: ONDANSETRON 4 MG/2 ML VIAL IV PRN (09:00)
[2024-08-19] MEDS: PANTOPRAZOLE 40 MG INJ IVP SCH (10:44)
[2024-08-19] MEDS ORDERED: SODIUM CHLORIDE 0.9% 10ML INJ IV PRN (10:44)
[2024-08-19] MEDS ORDERED: MORPHINE 2 MG/ML SYR IV PRN (10:44)
--- NOTE | 2024-08-19 10:47 | P.PN ---
Subjective Date of Service: 08/19/24 Chief Complaint: Acute appendicitis. Subjective: No chest pain or shortness of breath. No nausea or vomiting. Abdominal pain controlled with the pain medications. No obvious bleeding. Looks comfortable in the bed. Objective: General appearance: Alert and comfortable CVS: Normal S1 and S2 Lungs: Clear to auscultation bilaterally Abdomen: Soft, bowel sounds present, mild tenderness in RLQ Extremities: No lower extremity edema Physical Examination - Vital Signs Temperature: 98.5 F Blood Pressure: 122/66 Pulse: 60 Respirations: 16 Pulse Ox (%): 97 - Studies Laboratory Data (last 24 hrs) 08/18/24 08/18/24 18:21 18:21 WBC 8.50 Hgb 15.1 H Hct 43.0 Plt Count 316 Sodium 140 Potassium 4.1 BUN 21 H Creatinine 0.99 Glucose 102 Total Bilirubin 0.6 AST < 10 L ALT 32 Alkaline Phosphatase 72 Lipase 38 Assessment And Plan - Plan 1) Acute appendicitis. - Keep n.p.o., IV fluids and pain medications, IV antibiotics - Surgery is on board, plan for surgical intervention today. (2) hypothyroidism. -Continue patient home medication levothyroxine. 3. Esophageal thickening on CT scan: Probably esophagitis, started on PPI, follow-up with GI as an outpatient. 4. Fatty liver on CT scan: Follow-up with PCP and GI. 5. Obesity with BMI of 39.7: Consider weight loss, follow-up with PCP. Plan discussed with the patient and family at bedside, discussed with nursing staff, discussed with surgical team.
[2024-08-19] MEDS ORDERED: FENTANYL CITR 100 MCG/2 ML ONE (11:59)
[2024-08-19] MEDS ORDERED: MIDAZOLAM HCL 2 MG/2 ML INJ ONE (11:59)
[2024-08-19] MEDS ORDERED: dexAMETHasone 10 MG/ML VIAL ONE (11:59)
[2024-08-19] MEDS ORDERED: KETOROLAC 30 MG/ML INJ ONE (11:59)
[2024-08-19] MEDS ORDERED: propofoL 200 MG/20 ML VIAL IV ONE (11:59)
[2024-08-19] MEDS ORDERED: LIDOCAINE 2% MPF 5 ML VIAL ONE (11:59)
[2024-08-19] MEDS ORDERED: ROCURONIUM 50 MG/5 ML VIAL IV ONE (12:00)
[2024-08-19] MEDS: SCOPOLAMINE HYDROBROMIDE PATCH TD ONE (12:19)
--- NOTE | 2024-08-19 12:24 | PREOPCON ---
Date of Consultation: 08/19/2024 Reason For Consultation: Abdominal pain. History Of Present Illness: The patient is a 54-year-old female who presents to emergency room with a 2-day history of diffuse abdominal pain, localizing to the right lower quadrant, associated with lo w-grade temperature and initial episode of nausea and vomiting. She denies any diarrhea or constipat ion. No blood in her stool. No dysuria or hematuria. No sore throat, runny nose, cough, headaches, or dizziness. No chest pain. No fever or chills. Review of Systems: Otherwise unremarkable. Past Medical History: Significant for hypothyroidism for which she is getting supplementation. Past Surgical History: Hysterectomy. Breast augmentation and hip replacement as well. Allergies: NO ALLERGIES. Social History: The patient denies smoking or drinking. Family History: Noncontributory. Physical Examination: Vital Signs: Stable. Temperature is 100.0, that was last night. She is afebrile currently. General: She is awake, alert, and oriented x3. Head and Neck: No masses. No JVD. Throat clear. Neck is supple. Chest: Clear. Heart: S1, S2. Abdomen: Soft, nondistended, positive bowel sounds. Positive right lower quadrant tenderness with m inimal rebound. No rigidity or guarding. Extremity: Adequately perfused, nontender. Neuro: Nonfocal. Laboratory Data: Shows white count to be 6.8 this morning, there is no left shift. Chemistry review ed, essentially unremarkable. CT of the abdomen and pelvis reviewed, essentially there was dilatatio n of the appendix borderline and there was trace of periappendiceal inflammatory changes consistent w ith very early or mild acute appendicitis in the appropriate clinical setting. Assessment: Likely acute appendicitis. Recommendations: Admit, n.p.o., IV fluid, IV antibiotics, to the OR for laparoscopic appendectomy po ssible open. The patient and family understand risks, benefits, alternatives, and agreed to procedur eBaltazar BRYANT/TOÑITO Voice ID: [id number] Report ID: [id number]
[2024-08-19] MEDS: CEFOXITIN SODIUM 1 GM/VIAL ONE (12:27)
[2024-08-19] MEDS: BUPIVACAINE 0.5% PF 10 ML VIAL ONE (12:59)
[2024-08-19] MEDS: SUGAMMADEX SODIUM 200 MG/2 ML VIAL IV ONE (13:27)
[2024-08-19] MEDS: Ringers Lactate 1,000 ML IV ONE (13:27)
[2024-08-19] MEDS ORDERED: EPHEDRINE SULF 50 MG/ML VIAL ONE (13:32)
--- NOTE | 2024-08-19 13:39 | P.OP ---
Date of Service: 08/19/24 Preop diagnosis: Acute appendicitis Postop diagnosis: Same Procedure performed: Laparoscopic appendectomy Surgeon: Thomas De La Cruz MD International Editorial Producer: None Estimated blood loss: Minimal Specimen: Appendix Findings: As above Anesthesia: General Complications: None Drains: None Fluids and blood products: Nonapplicable Disposition: Recovery room Operative note: Patient brought to the OR and placed in supine position. General anesthesia began. Patient prepped and draped in usual sterile fashion. Marcaine 0.5% infiltrated locally. 15 blade used to make a 1 cm supraumbilical midline incision. Subcutaneous tissue divided and bleeding controlled cautery. Fascia identified and divided. #1 Vicryl stay suture placed. Peritoneal cavity entered with sharp and blunt dissection. 12 mm trocar placed into the peritoneal cavity under direct vision. Pneumoperitoneum established. Two 5 mm trocars placed under direct vision. 1 trocar placed in the suprapubic region and the other 1 in the left lower quadrant. Laparoscopy revealed acute appendicitis no evidence of perforation or suppuration at this point. Mesoappendix and base of the appendix and cecum clearly identified. Endo CAYDEN stapling device used to divide the base of the appendix on the cecum. And LigaSure used to divide the mesoappendix. Appendix retrieved through the umbilicus via Endo Catch bag. Right lower quadrant irrigated. No evidence of bleeding or bowel injury appreciated. All trocars removed under direct vision. Stay sutures tied to each other to reapproximate the fascial defect. Subcutaneous wound irrigated and bleeding controlled cautery. 3-0 chromic used to approximate subcutaneous tissue and close skin. Sterile dressing applied and patient awakened. Patient taken to recovery room in good general condition. CC:
[2024-08-19] MEDS ORDERED: HYDROMORPHONE HCL 1 MG/ML INJ IV PRN (13:52)
[2024-08-19] MEDS ORDERED: HYDROCODONE/APAP 7.5/325 MG TAB PO PRN (13:52)
[2024-08-19] MEDS: PROMETHAZINE INJ 25 MG/ML AMP ONE (14:19)
[2024-08-19 14:40] VITALS: O2SAT 99
[2024-08-20 05:20] LABS: Absolute Lymphocytes (CBC) 0.8 K/uL (0.7-4.9); Absolute Monocytes 0.5 K/uL (0.1-1.3); Absolute Neutrophil 11.7 K/uL (1.8-8.0); Basophils % 0.4 % (0-1.3); Eosinophils % 0.1 % (0-4.4); Hematocrit 39.8 % (36.0-45.0); Hemoglobin 13.4 g/dL (12.0-15.0); Lymphocytes % 6.5 % (15.3-44.8); MCH 29.4 pg (27.0-35.0); MCHC 33.6 g/dL (32.0-36.0); MCV 87.4 fL (80-100); Monocytes % 3.9 % (3.3-12.3); Neutrophils % 89.1 % (41.7-73.7); Platelets 261 thou/uL (152-406); RBC Red Blood Cell Count 4.55 M/uL (3.86-4.86); Red Cell Distribution Width 14.2 % (12.1-15.2)
[2024-08-20 05:51] LABS: Band Neutrophils 6 % (0-1); Differential Total Cells Count 100; Lymphocytes 7 % (15-42); Monocytes 4 % (0-10); Reactive Lymphocytes 3 %; Segmented Neutrophils 80 % (40-80)
[2024-08-20 05:52] LABS: Blood Morphology Comment NOT SEEN (NOT SEEN); Platelet Estimate ADEQ
[2024-08-20] MEDS: POTASSIUM CL SA 10 MEQ TAB PO ONE (08:43)
--- NOTE | 2024-08-20 10:39 | P.DS ---
Admission Date: 08/18/24 Discharge Date: 08/20/24 Disposition: ROUTINE DISCHARGE Discharge Condition: GOOD Reason for Admission: Acute appendicitis. Hospital Course: Discharge diagnosis: 1) Acute appendicitis. -Status post laparoscopic appendectomy, surgical team cleared to discharge, DC home on oral antibiotics (2) hypothyroidism. -Continue patient home medication levothyroxine. 3. Esophageal thickening on CT scan: Probably esophagitis, started on PPI, follow-up with GI as an outpatient. 4. Fatty liver on CT scan: Follow-up with PCP and GI. 5. Obesity with BMI of 39.7: Consider weight loss, follow-up with PCP. 6. Leukocytosis: Probably reactive postop. Plan discussed with the patient and family at bedside, discussed with nursing staff, DC home today. Hospital course: 54 year old patient admitted with acute appendicitis, surgical team was consulted, she was kept n.p.o. and started on IV antibiotics, she had laparoscopic appendectomy yesterday, surgical team evaluated the patient this morning and cleared to discharge, when I see the patient this morning she is doing well without any acute problems, her pain is reasonably controlled, she is tolerating diet, she had a bowel movement, and feels ready to go home, otherwise no other acute issues going on so I am planning to discharge her to go home, follow-up with PCP, surgery and GI clinics. Dr. De La Cruz had recommended to give 1 week of antibiotics. Subjective: No chest pain or shortness of breath. No nausea or vomiting. Abdominal pain controlled with pain medications. No obvious bleeding. Looks comfortable in the bed. Objective: General appearance: Alert and comfortable CVS: Normal S1 and S2 Lungs: Clear to auscultation bilaterally Abdomen: Soft, bowel sounds present, no tenderness other than some post op discomfort Extremities: No lower extremity edema Vital Signs/Physical Exam: Temp Pulse Resp BP Pulse Ox 98 F 59 15 107/52 L 98 08/20/24 08:00 08/20/24 08:00 08/20/24 08:00 08/20/24 08:00 08/20/24 08:00 Laboratory Data at Discharge: WBC 13.10 thou/uL (4.3-10.9) H 08/20/24 05:00 Hgb 13.4 g/dL (12.0-15.0) 08/20/24 05:00 Hct 39.8 % (36.0-45.0) 08/20/24 05:00 Plt Count 261 thou/uL (152-406) 08/20/24 05:00 Sodium 142 mEq/L (136-145) 08/19/24 04:41 Potassium 3.7 mEq/L (3.5-5.1) 08/19/24 04:41 BUN 15 mg/dL (7-18) 08/19/24 04:41 Creatinine 0.73 mg/dL (0.55-1.02) 08/19/24 04:41 Glucose 94 mg/dL (74-106) 08/19/24 04:41 Total Bilirubin 0.6 mg/dL (0.2-1.0) 08/19/24 04:41 AST 11 U/L (15-37) L 08/19/24 04:41 ALT 27 U/L (13-56) 08/19/24 04:41 Alkaline Phosphatase 58 U/L (45-117) 08/19/24 04:41 Lipase 38 U/L (13-75) 08/18/24 18:21 Home Medications: Progesterone, Micronized [Progesterone] 200 mg PO DAILY 08/19/24 Thyroid,Pork [Pump Tester Thyroid] 30 mg PO DAILY 08/19/24 Tirzepatide [Mounjaro] 2.5 mg SQ EVERY 7TH DAY 08/19/24 buPROPion HCL [Wellbutrin Xl] 150 mg pe PO DAILY 08/19/24 Amox/Clavulanate [Augmentin 875-125 Tab] 875 mg PO BID #14 tab 08/20/24 Hydrocodone 5/APAP 325 [[place] 5/325] 1 tab PO TID PRN #10 tab 08/20/24 Pantoprazole Sodium [Protonix] 40 mg PO DAILY #30 tab 08/20/24 New Medications: Amox/Clavulanate [Augmentin 875-125 Tab] 875 mg PO BID #14 tab Hydrocodone 5/APAP 325 [[place] 5/325] 1 tab PO TID PRN #10 tab PRN Reason: Pain Pantoprazole Sodium [Protonix] 40 mg PO DAILY #30 tab Physician Discharge Instructions: May shower in a.m. Remove outer dressing after shower Keep Steri-Strips on at all times Incentive spirometry as instructed Resume home meds and diet Activity as tolerated, no heavy lifting Follow-up my office 1 week, call for appointment Antibiotics and pain medicine per the hospitalist team Diet: Regular Activity: No lifting more than 10 lbs Followup: Mingo Edwards MD [ACTIVE - CAN ADMIT] - 1-2 Weeks (Fatty liver and esophageal thickening on CT scan will need f/u with GI clinic) Thomas De La Cruz MD [ACTIVE - CAN ADMIT] - 1 Week Lidia Graham FNP [Primary Care Provider] - 1 Week (f/u with PCP in 1 week with CBC and CMP. Fatty liver and esophageal thickening on CT scan will need f/u with GI clinic)
--- NOTE | 2024-08-20 10:54 | PN ---
Date of Progress Note: 08/20/2024 Subjective: The patient is awake, alert. No complaint. Tolerating diet. Ambulating. Pain control led on p.o. pain medication. Objective: Vital Signs: Stable. Afebrile. Abdomen: Completely benign. Dressing is clean, dry, and intact. Laboratory Data: Reviewed. White count is 13.1, with a slight left shift. Assessment: Status post laparoscopic appendectomy. Plan: The patient is cleared from surgery standpoint. Discharged on oral antibiotics. Discharge in structions given in detail. We will follow up with my office in 1 week. /MODL Voice ID: [id number] Report ID: [id number]
[2024-08-20 12:07] VITALS: BP 111/61; TEMP 98.5
== END 2024-08-20 12:45 | disposition home or self-care (01) ==
LOC: ER 17:59 → ERHOLD 23:56 → 4TH 08-19 10:48
PROVIDERS: ADMIT Hospitalist; ATTEND Hospitalist
PROC: 0DTJ4ZZ Resection of Appendix, Percutaneous Endoscopic Approach (ICD-10-PCS; principal; 2024-08-19 11:00)
DX: K35.80 Unspecified acute appendicitis (principal); F17.210 Nicotine dependence, cigarettes, uncomplicated; E03.9 Hypothyroidism, unspecified; F32.A Depression, unspecified; R11.2 Nausea with vomiting, unspecified; K76.0 Fatty (change of) liver, not elsewhere classified; E66.9 Obesity, unspecified; Z68.39 Body mass index [BMI] 39.0-39.9, adult; D72.829 Elevated white blood cell count, unspecified
CPT/HCPCS: 96361; 85025 ×3; 36415 ×2; 82947; 88304; 83690; 80053 ×2; 74177; 96375; 96374; 99285; 44970; Q9967; J2550; J2704; J2543 ×4; J2003; J2470; J2250; J3010 ×2; J1100; J0694; J2405 ×4; J7120; J7030 ×2; G0378